=== PATIENT | male | born 1995 | race African-American/Black ===

== ENCOUNTER → 2016-08-13 | Outpatient (REF) | payer BC | LOC: M LAB REF 15:03 | PROVIDERS: ATTEND Physician Assistant Medical | DX: R30.0 Dysuria (principal) ==

== ENCOUNTER → 2017-03-29 | Outpatient (CLI) | payer OTHER ==
[~2017-03-29] MED LIST: CLONI1TA PO; MIRT30TA3 PO
== END ==
LOC: M OUTALCOH 13:22
PROVIDERS: ATTEND Psychiatry & Neurology Psychiatry
DX: Z13.9 Encounter for screening, unspecified (principal); F10.20 Alcohol dependence, uncomplicated

== ENCOUNTER 2017-04-02 09:00 | Outpatient (RCR) | payer OTHER ==
[2017-04-11] MEDS ORDERED: MIRT30TA3 PO (03:22)
[2017-04-11] MEDS ORDERED: CLONI1TA PO (04:45)
== END 2017-04-14 ==
LOC: M OUTALCOH 09:00
PROVIDERS: ATTEND Psychiatry & Neurology Psychiatry
DX: F10.20 Alcohol dependence, uncomplicated (principal); F12.10 Cannabis abuse, uncomplicated; F11.10 Opioid abuse, uncomplicated

== ENCOUNTER 2017-04-11 03:05 | Emergency (ER) | payer BC, OTHER ==
[~2017-04-11] VITALS: Ht 180.3 cm; Wt 75.0 kg
[2017-04-11] MEDS ORDERED: MIRT30TA3 PO (03:22)
[2017-04-11] MEDS ORDERED: CLONI1TA PO (04:45)
[2017-04-11 05:04] VITALS: BP 132/58
== END 2017-04-11 05:05 | disposition home or self-care (01) ==
LOC: M ED 03:05
DX: F19.10 Other psychoactive substance abuse, uncomplicated (principal); F32.9 Major depressive disorder, single episode, unspecified; F17.200 Nicotine dependence, unspecified, uncomplicated; Z79.899 Other long term (current) drug therapy